=== PATIENT | male | born 1935 | race Caucasian/White ===

== ENCOUNTER 2018-06-08 10:07 | Day surgery (SDC) | payer MEDICARE, OTHER, SELFPAY ==
[2018-06-03 12:55] VITALS: BP 120/66; PULSE 70; RESP 16; TEMP 36.6; O2SAT 94
--- NOTE | 2018-06-07 17:59 | POEE_ITS ---
History of Present Illness Chief Complaint: Progressive decreased vision, right eye Narrative: The patient is an 82-year-old lady with history of homonymous hemianopia who presented with complaints of diminished visual acuity in both eyes. She notes significant difficulty with glare when driving at night. On examination she was noted to have significant bilateral nuclear cortical and posterior subcapsular cataracts in both eyes with visual acuity of 20/70 in each eye. NOTE: The Chief Complaint, HPI, Past Medical History, Past Surgical History, Family History, Social History, Medications, and complete Ophthalmic Exam with detailed Assessment and Plan have already been documented in the patient's outpatient ophthalmic record and are not covered again in detail here. [facility] Medical History Cortical cataract of right eye (Acute) Nuclear sclerotic cataract of right eye (Acute) Posterior subcapsular age-related cataract, right eye (Acute) Social History Smoking/Tobacco Use Status: Former Tobacco Use Meds Home Medications Medication Instructions Recorded Confirmed Type albuterol sulfate [Proventil HFA] 2 puff INHALATION QID PRN 06/03/18 06/03/18 History aspirin 81 mg PO .QOD 06/03/18 06/03/18 History cholecalciferol (vitamin D3) 2,000 unit PO DAILY 06/03/18 06/03/18 History [Vitamin D3] clotrimazole-betamethasone 1 applic TOPICAL BID 06/03/18 06/03/18 History [Lotrisone] finasteride 5 mg PO DAILY 06/03/18 06/03/18 History ipratropium-albuterol 3 ml INHALATION QID PRN 06/03/18 06/03/18 History mometasone [Asmanex Twisthaler] 1 inh INHALATION BID 06/03/18 06/03/18 History nvuwmlqs-ure-DQ-lycopen-lutein 1 tab PO DAILY 06/03/18 06/03/18 History [Centrum Silver Men] omeprazole 20 mg PO DAILY 06/03/18 06/03/18 History phenytoin sodium extended 30 mg PO HS 06/03/18 06/03/18 History phenytoin sodium extended 300 mg PO HS 06/03/18 06/03/18 History roflumilast 500 mcg PO DAILY 06/03/18 06/03/18 History simvastatin 40 mg PO QPM 06/03/18 06/03/18 History tiotropium-olodaterol [Stiolto 2 puff INHALATION DAILY 06/03/18 06/03/18 History Respimat] trazodone 1 - 2 tab PO HS PRN 06/03/18 06/03/18 History triamcinolone acetonide 1 applic TOPICAL TID PRN 06/03/18 06/03/18 History Allergies Allergy/AdvReac Type Severity Reaction Status Date / Time pneumococcal vaccine Allergy Verified 06/03/18 13:07 [From Pneumovax 23] Exam OCULAR EXAM:: Most recent ocular examination revealed best corrected visual acuity of 20/40 right eye, 20/20 left eye. Pupils equal, round, and reactive without afferent pupillary defect. Intraocular pressure is 10 in each eye. Extraocular motility is normal. Slit-lamp examination reveals pupils dilated to 5.5 mm OU. There is a 3+ nuclear, 3+ cortical, and 2+ posterior subcapsular cataract in both eyes with poor red reflex. Funduscopic examination shows disc cupping of 0.45 OD, 0.6 OS with normal vessels. The optic nerves have good perfusion and normal color. The retinal vasculature is normal without signific ant tortuosity or abnormality. The maculas are normal in appearance with normal contour and foveal reflex appropriate for age. The peripheral retina and vitreous are normal. BRIGHTNESS ACUITY TESTING (BAT):: acuity testing of the right eye off is 20/40. Low is 20/70. Medium is 20/80. high is 20/150. Assessment and Plan (1) Posterior subcapsular age-related cataract, right eye: Current visit: No Status: Acute Assessment: Visually significant cataract, right eye. Plan: Cataract extraction with intraocular lens implantation, right eye (2) Nuclear sclerotic cataract of right eye: Current visit: No Status: Acute Assessment: Visually significant cataract, right eye. Plan: Cataract extraction with intraocular lens implantation, right eye (3) Cortical cataract of right eye: Current visit: No Status: Acute Assessment: Visually significant cataract, right eye. Plan: Cataract extraction with intraocular lens implantation, right eye Note: NOTE:: The details of the planned surgery, including the risks, indications,limitations,expectations,outcome and possible complications were explained to the patient. The patient understands the complications including, but not limited to: infection, hemorrhage, posterior dislocation of the lens or nuclear fragments which may require the intervention of a vitreoretinal surgeon, possible loss of the eye, or from anesthetic complications. The patient has been made aware of the option of not having surgery, that vision following surgery may not be equal to that prior to surgery, and that the planned surgery may not achieve the intended results. Following this discussion, which the patient appeared to understand, the patient wishes to proceed with cataract surgery with lens implantation of the affected eye to improve and maximize vision.
--- NOTE | 2018-06-07 18:10 | W.PIPPEYE ---
History of Present Illness Chief Complaint: Progressive decreased vision, right eye Narrative: The patient is an 85-year old male who presented with complaints of progressive decreased vision in both eyes at both distance and near. He notes significant difficulty driving at night due to glare. On examination he was noted to have nuclear and posterior subcapsular cataract of the right eye with best corrected vision of 20/100. The option of cataract surgery was offered to the patient and he wished to proceed. NOTE: The Chief Complaint, HPI, Past Medical History, Past Surgical History, Family History, Social History, Medications, and complete Ophthalmic Exam with detailed Assessment and Plan have already been documented in the patient's outpatient ophthalmic record and are not covered again in detail here. [facility] History Cortical cataract of right eye (Acute) Nuclear sclerotic cataract of right eye (Acute) Posterior subcapsular age-related cataract, right eye (Acute) Social History Smoking/Tobacco Use Status: Former Tobacco Use Meds Home Medications Medication Instructions Recorded Confirmed Type albuterol sulfate [Proventil HFA] 2 puff INHALATION QID PRN 06/03/18 06/03/18 History aspirin 81 mg PO .QOD 06/03/18 06/03/18 History cholecalciferol (vitamin D3) 2,000 unit PO DAILY 06/03/18 06/03/18 History [Vitamin D3] clotrimazole-betamethasone 1 applic TOPICAL BID 06/03/18 06/03/18 History [Lotrisone] finasteride 5 mg PO DAILY 06/03/18 06/03/18 History ipratropium-albuterol 3 ml INHALATION QID PRN 06/03/18 06/03/18 History mometasone [Asmanex Twisthaler] 1 inh INHALATION BID 06/03/18 06/03/18 History vyyyzlsa-rpk-XT-lycopen-lutein 1 tab PO DAILY 06/03/18 06/03/18 History [Centrum Silver Men] omeprazole 20 mg PO DAILY 06/03/18 06/03/18 History phenytoin sodium extended 30 mg PO HS 06/03/18 06/03/18 History phenytoin sodium extended 300 mg PO HS 06/03/18 06/03/18 History roflumilast 500 mcg PO DAILY 06/03/18 06/03/18 History simvastatin 40 mg PO QPM 06/03/18 06/03/18 History tiotropium-olodaterol [Stiolto 2 puff INHALATION DAILY 06/03/18 06/03/18 History Respimat] trazodone 1 - 2 tab PO HS PRN 06/03/18 06/03/18 History triamcinolone acetonide 1 applic TOPICAL TID PRN 06/03/18 06/03/18 History Allergies Allergy/AdvReac Type Severity Reaction Status Date / Time pneumococcal vaccine Allergy Verified 06/03/18 13:07 [From Pneumovax 23] Exam OCULAR EXAM:: Most recent ocular examination shows best corrected vision of 20/100 OD, 20/40 OS. Intraocular pressure is 14 OD, 17 OS. Extraocular motility is normal. Pupils equal, round, and reactive without afferent pupillary defect. 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 2+ nuclear cataract is present OU. In addition, a 2+ posterior subcapsular cataract is present OD. Funduscopic examination shows disc cupping of 0.3 OU with good color. The optic nerves have good perfusion and normal color. The retinal vasculature is normal without significant tortuosity or abnormality. The maculas are normal in appearance with normal contour and foveal reflex appropriate for age. The peripheral retina and vitreous are normal. BRIGHTNESS ACUITY TESTING (BAT):: Brightness acuity testing of the right eye cough is 20/100. Low, medium, and high R 20/200. Note: NOTE:: The details of the planned surgery, including the risks, indications,limitations,expectations,outcome and possible complications were explained to the patient. The patient understands the complications including, but not limited to: infection, hemorrhage, posterior dislocation of the lens or nuclear fragments which may require the intervention of a vitreoretinal surgeon, possible loss of the eye, or from anesthetic complications. The patient has been made aware of the option of not having surgery, that vision following surgery may not be equal to that prior to surgery, and that the planned surgery may not achieve the intended results. Following this discussion, which the patient appeared to understand, the patient wishes to proceed with cataract surgery with lens implantation of the affected eye to improve and maximize vision.
[2018-06-08 10:40] VITALS: BP 131/67; PULSE 74; RESP 16; TEMP 36.6; O2SAT 94
[2018-06-08] MEDS: Tetracaine 0.5% 4 ML BTL OD ×2 (11:04→12:05)
[2018-06-08] MEDS: Tropicam./Phenyleph. (1/2.5%) 5 ML BTL OD ×3 (11:05→11:33)
[2018-06-08] MEDS: Lidocaine 2% Jelly 6 ML SYR (12:03)
[2018-06-08] MEDS: Triamcinolone 40 MG/ML VIAL (12:05)
[2018-06-08] MEDS: Povidone-Iodine Ophth 30 ML BTL (12:05)
[2018-06-08] MEDS: Trypan Blue 0.06% 0.5 ML SYR (12:05)
[2018-06-08] MEDS: Balanced Salt Soln.-PLUS 500 ML BAG (12:05)
[2018-06-08] MEDS: Lidocaine 1% Pres-Free 5 ML VIAL (12:05)
--- NOTE | 2018-06-08 12:39 | W.PM.DSUDISC ---
Discharge Plan Discharge Details Attending Provider: Jorge Bennett Primary Care Provider: Fabienne Sexton Home Meds and New Rx's Prescriptions: No Action ipratropium-albuterol 0.5 mg-3 mg(2.5 mg base)/3 mL Solution For Nebulization 3 ml INHALATION QID PRNRF: 0 trazodone 50 mg Tablet 1 - 2 tab PO HS PRNRF: 0 phenytoin sodium extended 100 mg Capsule 300 mg PO HS RF: 0 triamcinolone acetonide 0.1 % Cream 1 applic TOPICAL TID PRNRF: 0 simvastatin 40 mg Tablet 40 mg PO QPM RF: 0 clotrimazole-betamethasone [Lotrisone] 1-0.05 % Cream 1 applic TOPICAL BID RF: 0 omeprazole 20 mg Capsule,Delayed Release(Dr/Ec) 20 mg PO DAILY RF: 0 aspirin 81 mg Tablet,Chewable 81 mg PO .QOD RF: 0 Proventil HFA 90 mcg/actuation Hfa Aerosol Inhaler 2 puff INHALATION QID PRNRF: 0 phenytoin sodium extended 30 mg Capsule 30 mg PO HS RF: 0 finasteride 5 mg Tablet 5 mg PO DAILY RF: 0 Asmanex Twisthaler 220 mcg (120 doses) Aerosol Powdr Breath Activated 1 inh INHALATION BID RF: 0 cholecalciferol (vitamin D3) [Vitamin D3] 2,000 unit Capsule 2,000 unit PO DAILY RF: 0 roflumilast 500 mcg Tablet 500 mcg PO DAILY RF: 0 Centrum Silver Men 300-600-300 mcg Tablet 1 tab PO DAILY RF: 0 Stiolto Respimat 2.5-2.5 mcg/actuation Mist 2 puff INHALATION DAILY RF: 0 Discharge Instructions Stand Alone Forms: Post-op Topical Cataract, Press Ganey (DSU) DS: Diagnosis Discharge Diagnosis (1) Status post cataract extraction and insertion of intraocular lens of right eye: Status: Chronic
--- NOTE | 2018-06-08 12:41 | W.PM.OP ---
Date of service: 06/08/18 Time of Service: 12:41 Operative Note PRE-OP DIAGNOSIS: Cataract, right eye, with poor red reflex PROCEDURE: Cataract extraction using phacoemulsification with intraocular lens implantation, right eye, using capsular staining with Vision Blue SURGEON: Jorge Bennett ANESTHESIA: MAC (with local sub-tenon's anesthetic injection) PATHOLOGY: none sent COMPLICATIONS: None Patient was transported to: same day Patient's condition: stable Implants: Josue and Josue / [employer] Tecnis [id number] Indications: Progressive visual loss due to cataract, right eye Procedure Description: CATARACT SURGERY OPERATIVE REPORT PREOPERATIVE DIAGNOSIS: 1. Nuclear/cortical/posterior subcapsular cataract, right eye 2. Poor red reflex secondary to #1 POSTOPERATIVE DIAGNOSIS: Same OPERATION: 1. Cataract extraction using phacoemulsification with posterior chamber intraocular lens implant, right eye. 2. Capsular staining with Vision Blue IOL: IOL [employer] Reviewer/Model: Josue & Josue / GALA Tecnis [id number] IOL Power: + 19.0 diopters IOL Serial Number: [id number] Optic Diameter: 6.0mm Haptic/Overall Diameter: 13.0mm PHACO INFO: Rajeev Viditurion Vision System with OZil and Active Fluidics Cumulative Dispersed Energy (CDE): 10.58 seconds SURGEON: Jorge Bennett MD, JACQUELINE ANESTHESIA: Monitored Anesthesia Care (MAC), with local sub-tenon's anesthetic infiltration COMPLICATIONS: None SPECIMENS: None INDICATIONS FOR PROCEDURE: The patient is a 82-year old male with history of progressive decreased vision in his right eye. He is noted to have a significant nuclear cortical and posterior subcapsular cataract of the right eye with visual acuity of 20/70. The option of cataract surgery was offered to the patient and he wished to proceed. PROCEDURE: The correct surgical eye was identified and marked as the right eye and the pupil was dilated in the preoperative area using mydriatics, cycloplegics, and NSAIDS (except in aspirin allergic patients). The dilated pupil size was 7.0 mm. Oral sedation was administered in the form of an Imprimis MKO Melt (midazolam 3mg/ketamine 25mg/ondansetron 2mg). The patient was brought to the operating room where cardiopulmonary monitoring was instituted and surgical time-out was performed, confirming the correct operative eye and IOL power. Topical anesthesia was administered and ophthalmic povidone-iodine 5% was instilled into the conjunctival fornices. Lidocaine gel was applied to the cornea and the aleyda-ocular area was prepped with Betadine 10% solution and draped in the usual sterile fashion for intraocular surgery, including an aperture drape. A Tegaderm transparent film dressing was cut in half and used to cover the lashes and lid margins. Care was taken to sequester the lashes and lid margins under the Tegaderm dressing. A lid speculum was placed between the lids of the operative eye and the Kash-Ervin operating microscope was maneuvered into position. Sherie scissors were then used to make a conjunctival buttonhole approximately 6mm posterior to the limbus in the inferonasal quadrant. Blunt dissection was carried out to expose bare sclera, and a blunt-tipped sub-tenon?s anesthesia cannula was introduced and passed posteriorly along the globe where non-preserved plain lidocaine was injected into posterior sub-Tenon?s space. A sideport knife was used to make a paracentesis port at the 7:00 position. Air was injected into the anterior chamber, followed by Vision Blue, which was painted over the anterior capsule and then irrigated out with BSS. The anterior chamber was filled with Healon GV. A 2.4mm keratome knife was used to create a half-thickness groove at the limbus and then to construct a three-plane near-clear corneal tunnel extending 2.0mm into clear cornea at the 10:00 position. A flap was raised on the anterior capsule and capsulorhexis forceps were used to complete a continuous curvilinear capsulorhexis of 5.0mm. Balanced salt solution was then used to perform cortical cleaving hydrodissection and nuclear hydrodelineation until the lens could be freely rotated within the capsular bag. The lens nucleus was then disassembled and removed within the capsular bag and iris plane using phacoemulsification. Residual cortical material was removed using the 45-degree angled silicone I/A tip with 0.3mm port. The posterior capsule was carefully polished to remove as much residual lens epithelial cells as safely possible. The capsular bag was then inflated and the anterior chamber deepened with viscoelastic. The lens implant described above was inserted into the capsular bag using the GALA Anderson Injector. A Kuglen hook was used to dial the IOL into position. Residual viscoelastic was then removed first from posterior to the IOL, then from the anterior chamber using the I/A handpiece. The lens implant was noted to center nicely within the capsular bag. The incisions were stromally hydrated, and the anterior chamber was reformed using BSS. Then 0.4cc of moxifloxacin 1.5mg/ml were injected into the capsular bag and anterior chamber. The incisions were checked with a Weck spear and found to be secure. Next, a 1 cc mixture containing 20 mg of triamcinolone and 2.5 mg of moxifloxacin were injected into the posterior sub-tenon's space using the sub-tenon's anesthesia cannula. Several drops of ophthalmic povidone-iodine 5% were then applied to the eye followed by two drops of Imprimis combination moxifloxacin/dexamethasone solution. The drapes were removed and a clear plastic protective eye shield was placed over the eye. The patient was then returned to Same Day Surgery in stable condition.
--- NOTE | 2018-06-08 12:45 | ROE_ITS ---
Date of service: 06/08/18 Time of Service: 12:41 Operative Note PRE-OP DIAGNOSIS: Cataract, right eye, with poor red reflex PROCEDURE: Cataract extraction using phacoemulsification with intraocular lens implantation, right eye, using capsular staining with Vision Blue SURGEON: Jorge Bennett ANESTHESIA: MAC (with local sub-tenon's anesthetic injection) PATHOLOGY: none sent COMPLICATIONS: None Patient was transported to: same day Patient's condition: stable Implants: Jos[employer] and Josue / [employer] Tecnis [id number] Indications: Progressive visual loss due to cataract, right eye Procedure Description: CATARACT SURGERY OPERATIVE REPORT PREOPERATIVE DIAGNOSIS: 1. Nuclear/cortical/posterior subcapsular cataract, right eye 2. Poor red reflex secondary to #1 POSTOPERATIVE DIAGNOSIS: Same OPERATION: 1. Cataract extraction using phacoemulsification with posterior chamber intraocular lens implant, right eye. 2. Capsular staining with Vision Blue IOL: IOL [employer] Member/Model: Josue & Josue / GALA Tecnis [id number] IOL Power: + 19.0 diopters IOL Serial Number: [id number] Optic Diameter: 6.0mm Haptic/Overall Diameter: 13.0mm PHACO INFO: Rajeev PWAurion Vision System with OZil and Active Fluidics Cumulative Dispersed Energy (CDE): 10.58 seconds SURGEON: Jorge Bennett MD, JACQUELINE ANESTHESIA: Monitored Anesthesia Care (MAC), with local sub-tenon's anesthetic infiltration COMPLICATIONS: None SPECIMENS: None INDICATIONS FOR PROCEDURE: The patient is a 82-year old male with history of progressive decreased vision in his right eye. He is noted to have a significant nuclear cortical and posterior subcapsular cataract of the right eye with visual acuity of 20/70. The option of cataract surgery was offered to the patient and he wished to proceed. PROCEDURE: The correct surgical eye was identified and marked as the right eye and the pupil was dilated in the preoperative area using mydriatics, cycloplegics, and NSAIDS (except in aspirin allergic patients). The dilated pupil size was 7.0 mm. Oral sedation was administered in the form of an Imprimis MKO Melt (midazolam 3mg/ketamine 25mg/ondansetron 2mg). The patient was brought to the operating room where cardiopulmonary monitoring was instituted and surgical time-out was performed, confirming the correct operative eye and IOL power. Topical anesthesia was administered and ophthalmic povidone-iodine 5% was instilled into the conjunctival fornices. Lidocaine gel was applied to the cornea and the aleyda-ocular area was prepped with Betadine 10% solution and draped in the usual sterile fashion for intraocular surgery, including an aperture drape. A Tegaderm transparent film dressing was cut in half and used to cover the lashes and lid margins. Care was taken to sequester the lashes and lid margins under the Tegaderm dressing. A lid speculum was placed between the lids of the operative eye and the Kash-Ervin operating microscope was maneuvered into position. Sherie scissors were then used to make a conjunctival buttonhole approximately 6mm posterior to the limbus in the inferonasal quadrant. Blunt dissection was carried out to expose bare sclera, and a blunt-tipped sub-tenon?s anesthesia cannula was introduced and passed posteriorly along the globe where non- preserved plain lidocaine was injected into posterior sub-Tenon?s space. A sideport knife was used to make a paracentesis port at the 7:00 position. Air was injected into the anterior chamber, followed by Vision Blue, which was painted over the anterior capsule and then irrigated out with BSS. The anterior chamber was filled with Healon GV. A 2.4mm keratome knife was used to create a half-thickness groove at the limbus and then to construct a three-plane near- clear corneal tunnel extending 2.0mm into clear cornea at the 10:00 position. A flap was raised on the anterior capsule and capsulorhexis forceps were used to complete a continuous curvilinear capsulorhexis of 5.0mm. Balanced salt solution was then used to perform cortical cleaving hydrodissection and nuclear hydrodelineation until the lens could be freely rotated within the capsular bag. The lens nucleus was then disassembled and removed within the capsular bag and iris plane using phacoemulsification. Residual cortical material was removed using the 45-degree angled silicone I/A tip with 0.3mm port. The posterior capsule was carefully polished to remove as much residual lens epithelial cells as safely possible. The capsular bag was then inflated and the anterior chamber deepened with viscoelastic. The lens implant described above was inserted into the capsular bag using the GALA Freeland Injector. A Kuglen hook was used to dial the IOL into position. Residual viscoelastic was then removed first from posterior to the IOL, then from the anterior chamber using the I/A handpiece. The lens implant was noted to center nicely within the capsular bag. The incisions were stromally hydrated, and the anterior chamber was reformed using BSS. Then 0.4cc of moxifloxacin 1.5mg/ml were injected into the capsular bag and anterior chamber. The incisions were checked with a Weck spear and found to be secure. Next, a 1 cc mixture containing 20 mg of triamcinolone and 2.5 mg of moxifloxacin were injected into the posterior sub-tenon's space using the sub-tenon's anesthesia cannula. Several drops of ophthalmic povidone-iodine 5% were then applied to the eye followed by two drops of Imprimis combination moxifloxacin/dexamethasone solution. The drapes were removed and a clear plastic protective eye shield was placed over the eye. The patient was then returned to Same Day Surgery in stable condition.
== END 2018-06-08 13:05 | disposition home or self-care (01) ==
LOC: SUR 10:08
PROVIDERS: PCP Internal Medicine; Visit Provider Ophthalmology
PROC: (CPT 66982; principal; 2018-06-08 13:05)
DX: H25.811 Combined forms of age-related cataract, right eye (principal); H35.89 Other specified retinal disorders; J44.9 Chronic obstructive pulmonary disease, unspecified; I10 Essential (primary) hypertension; G47.33 Obstructive sleep apnea (adult) (pediatric); E11.9 Type 2 diabetes mellitus without complications
CPT/HCPCS: 66982; V2632

== ENCOUNTER 2018-06-19 09:36 | Day surgery (SDC) | payer MEDICARE, OTHER, SELFPAY ==
--- NOTE | 2018-06-18 12:17 | W.PIPPEYE ---
History of Present Illness Chief Complaint: Progressive decreased vision, left eye Narrative: The patient is an 82-year old male with history of progressive decreased vision in both eyes at both distance and near. 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 He originally presented with complaints of diminished visual acuity and was noted to have significant bilateral nuclear cortical and posterior subcapsular cataracts with visual acuity of 20/70 in each eye. He underwent cataract surgery in the right eye on 06/08/2018 and has regained uncorrected vision of 20/30 in the right eye. He now presents for cataract surgery in the left eye. NOTE: The Chief Complaint, HPI, Past Medical History, Past Surgical History, Family History, Social History, Medications, and complete Ophthalmic Exam with detailed Assessment and Plan have already been documented in the patient's outpatient ophthalmic record and are not covered again in detail here. [facility] Medical History Cortical cataract of left eye (Acute) Nuclear sclerotic cataract of left eye (Acute) Posterior subcapsular age-related cataract of left eye (Acute) Cortical cataract of right eye (Resolved) Nuclear sclerotic cataract of right eye (Resolved) Posterior subcapsular age-related cataract, right eye (Resolved) Surgical History Status post cataract extraction and insertion of intraocular lens of right eye (Chronic 06/08/18) Social History Smoking/Tobacco Use Status: Former Tobacco Use Meds Home Medications Medication Instructions Recorded Confirmed Type albuterol sulfate [Proventil HFA] 2 puff INHALATION QID PRN 06/03/18 06/08/18 History aspirin 81 mg PO .QOD 06/03/18 06/03/18 History cholecalciferol (vitamin D3) 2,000 unit PO DAILY 06/03/18 06/08/18 History [Vitamin D3] clotrimazole-betamethasone 1 applic TOPICAL BID 06/03/18 06/08/18 History [Lotrisone] finasteride 5 mg PO DAILY 06/03/18 06/08/18 History ipratropium-albuterol 3 ml INHALATION QID PRN 06/03/18 06/08/18 History mometasone [Asmanex Twisthaler] 1 inh INHALATION BID 06/03/18 06/08/18 History xcjbccnc-mnb-GR-lycopen-lutein 1 tab PO DAILY 06/03/18 06/08/18 History [Centrum Silver Men] omeprazole 20 mg PO DAILY 06/03/18 06/08/18 History phenytoin sodium extended 30 mg PO HS 06/03/18 06/08/18 History phenytoin sodium extended 300 mg PO HS 06/03/18 06/08/18 History roflumilast 500 mcg PO DAILY 06/03/18 06/08/18 History simvastatin 40 mg PO QPM 06/03/18 06/08/18 History tiotropium-olodaterol [Stiolto 2 puff INHALATION DAILY 06/03/18 06/08/18 History Respimat] trazodone 1 - 2 tab PO HS PRN 06/03/18 06/08/18 History triamcinolone acetonide 1 applic TOPICAL TID PRN 06/03/18 06/08/18 History Allergies Allergy/AdvReac Type Severity Reaction Status Date / Time pneumococcal vaccine Allergy Verified 06/03/18 13:07 [From Pneumovax 23] Exam OCULAR EXAM:: Most recent ocular examination is significant for uncorrected visual acuity of 20/30 in the right eye. Visual acuity measures 20/70 in the left eye. Pupils equal, round, and reactive without afferent pupillary defect. Extraocular motility is normal. Slit-lamp examination is significant for pupils dilating to 5.5 mm OU. Well-positioned PCIOL OD with clear posterior capsule. 3+ nuclear/cortical cataract with 2+ posterior subcapsular cataract in the left eye with poor red reflex. Dilated funduscopic examination shows disc cupping of 0.45 OD 0.6 OS with normal vessels, macula, peripheral retina and vitreous. BRIGHTNESS ACUITY TESTING (BAT):: Brightness acuity testing of the left eye off is 20/70. Low 20/70. Medium 20/60. High 20/60. Assessment and Plan (1) Posterior subcapsular age-related cataract of left eye: Current visit: No Status: Acute Assessment: Visually significant cataract, left eye. Plan: Cataract extraction with intraocular lens implantation, left eye (2) Nuclear sclerotic cataract of left eye: Current visit: No Status: Acute Assessment: Visually significant cataract, left eye. Plan: Cataract extraction with intraocular lens implantation, left eye (3) Cortical cataract of left eye: Current visit: No Status: Acute Assessment: Visually significant cataract, left eye. Plan: Cataract extraction with intraocular lens implantation, left eye Note: NOTE:: The details of the planned surgery, including the risks, indications,limitations,expectations,outcome and possible complications were explained to the patient. The patient understands the complications including, but not limited to: infection, hemorrhage, posterior dislocation of the lens or nuclear fragments which may require the intervention of a vitreoretinal surgeon, possible loss of the eye, or from anesthetic complications. The patient has been made aware of the option of not having surgery, that vision following surgery may not be equal to that prior to surgery, and that the planned surgery may not achieve the intended results. Following this discussion, which the patient appeared to understand, the patient wishes to proceed with cataract surgery with lens implantation of the affected eye to improve and maximize vision.
[2018-06-19 10:12] VITALS: BP 135/63; PULSE 65; RESP 20; TEMP 35.9; O2SAT 96
[2018-06-19] MEDS: Tetracaine 0.5% 4 ML BTL OS ×3 (10:31→10:38)
[2018-06-19] MEDS: Tropicam./Phenyleph. (1/2.5%) 5 ML BTL OS ×3 (10:31→10:38)
[2018-06-19] MEDS: Balanced Salt Soln.-PLUS 500 ML BAG (11:47)
[2018-06-19] MEDS: Lidocaine 2% Jelly 6 ML SYR (11:47)
[2018-06-19] MEDS: Lidocaine 1% Pres-Free 5 ML VIAL (11:47)
[2018-06-19] MEDS: Triamcinolone 40 MG/ML VIAL (11:47)
[2018-06-19] MEDS: Trypan Blue 0.06% 0.5 ML SYR (12:01)
--- NOTE | 2018-06-19 12:27 | W.PM.DSUDISC ---
Discharge Plan Discharge Details Reason For Visit: CATARACT OS Attending Provider: Jorge Bennett Primary Care Provider: Fabienne Sexton Home Meds and New Rx's Prescriptions: No Action ipratropium-albuterol 0.5 mg-3 mg(2.5 mg base)/3 mL Solution For Nebulization 3 ml INHALATION QID PRNRF: 0 phenytoin sodium extended 100 mg Capsule 300 mg PO HS RF: 0 triamcinolone acetonide 0.1 % Cream 1 applic TOPICAL TID PRNRF: 0 simvastatin 40 mg Tablet 40 mg PO QPM RF: 0 clotrimazole-betamethasone [Lotrisone] 1-0.05 % Cream 1 applic TOPICAL BID RF: 0 omeprazole 20 mg Capsule,Delayed Release(Dr/Ec) 20 mg PO DAILY RF: 0 aspirin 81 mg Tablet,Chewable 81 mg PO .QOD RF: 0 Proventil HFA 90 mcg/actuation Hfa Aerosol Inhaler 2 puff INHALATION QID PRNRF: 0 phenytoin sodium extended 30 mg Capsule 30 mg PO HS RF: 0 finasteride 5 mg Tablet 5 mg PO DAILY RF: 0 Asmanex Twisthaler 220 mcg (120 doses) Aerosol Powdr Breath Activated 1 inh INHALATION BID RF: 0 cholecalciferol (vitamin D3) [Vitamin D3] 2,000 unit Capsule 2,000 unit PO DAILY RF: 0 roflumilast 500 mcg Tablet 500 mcg PO DAILY RF: 0 Centrum Silver Men 300-600-300 mcg Tablet 1 tab PO DAILY RF: 0 Stiolto Respimat 2.5-2.5 mcg/actuation Mist 2 puff INHALATION DAILY RF: 0 Discharge Instructions Stand Alone Forms: Post-op Topical Cataract, Press Ganey (DSU) DS: Diagnosis Discharge Diagnosis (1) Status post cataract extraction and insertion of intraocular lens of left eye: Status: Chronic
--- NOTE | 2018-06-19 12:28 | W.PM.OP ---
Date of service: 06/19/18 Time of Service: Operative Note DATE OF PROCEDURE: 06/19/18 PRE-OP DIAGNOSIS: Cataract, left eye, with poor red reflex POST-OP DIAGNOSIS: same PROCEDURE: Cataract extraction using phacoemulsification with intraocular lens implant, left eye, using capsular staining with Vision Blue SURGEON: Jorge Bennett ANESTHESIA: MAC (with local sub-tenon's anesthetic injection) COMPLICATIONS: None Patient was transported to: same day Patient's condition: stable Implants: [employer] Josue / [employer] Tecnis [id number] Indications: Progressive decreased vision due to cataract, left eye, with poor red reflex Procedure Description: CATARACT SURGERY OPERATIVE REPORT PREOPERATIVE DIAGNOSIS: 1. Nuclear/cortical/posterior subcapsular cataract, left eye 2. Poor red reflex secondary to #1 POSTOPERATIVE DIAGNOSIS: Same OPERATION: 1. Cataract extraction using phacoemulsification with posterior chamber intraocular lens implant, left eye. 2. Capsular staining with Vision Blue IOL: IOL Senior Benefits Specialist/Model: Josue & Josue / GALA Tecnis [id number] IOL Power: + 20.0 diopters IOL Serial Number: [id number] Optic Diameter: 6.0 mm Haptic/Overall Diameter: 13.0 mm PHACO INFO: Rajeev Centurion Vision System with OZil and Active Fluidics Cumulative Dispersed Energy (CDE): 12.4 and seconds SURGEON: Jorge Bennett MD, JACQUELINE ANESTHESIA: Monitored [facility] ([facility]), with local sub-tenon's anesthetic infiltration COMPLICATIONS: None SPECIMENS: None INDICATIONS FOR PROCEDURE: The patient is an 82-year old male with history of progressive decreased vision in both eyes secondary to the development of nuclear cortical and posterior subcapsular cataract. 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 He has already undergone cataract surgery in his right eye and is doing well postoperatively. He now presents for cataract surgery in the left eye PROCEDURE: The correct surgical eye was identified and marked as the left eye and the pupil was dilated in the preoperative area using mydriatics and cycloplegics. The dilated pupil size was 6.5 mm. Oral sedation was administered in the form of an Imprimis MKO Melt (midazolam 3mg/ketamine 25mg/ondansetron 2mg). The patient was brought to the operating room where cardiopulmonary monitoring was instituted and surgical time-out was performed, confirming the correct operative eye and IOL power. Topical anesthesia was administered and ophthalmic povidone-iodine 5% was instilled into the conjunctival fornices. Lidocaine gel was applied to the cornea and the aleyda-ocular area was prepped with Betadine 10% solution and draped in the usual sterile fashion for intraocular surgery, including an aperture drape. A Tegaderm transparent film dressing was cut in half and used to cover the lashes and lid margins. Care was taken to sequester the lashes and lid margins under the Tegaderm dressing. A lid speculum was placed between the lids of the operative eye and the Kash-Ervin operating microscope was maneuvered into position. Sherie scissors were then used to make a conjunctival buttonhole approximately 6mm posterior to the limbus in the inferonasal quadrant. Blunt dissection was carried out to expose bare sclera, and a blunt-tipped sub-tenon?s anesthesia cannula was introduced and passed posteriorly along the globe where non-preserved plain lidocaine was injected into posterior sub-Tenon?s space. A sideport knife was used to make a paracentesis port at the 12:00 position. Air was injected into the anterior chamber, followed by Vision Blue, which was painted over the anterior capsule and then irrigated out using BSS. The anterior chamber was filled with Healon GV. A 2.4mm keratome knife was used to create a half-thickness groove at the limbus and then to construct a three-plane near-clear corneal tunnel extending 2.0mm into clear cornea at the 3:00 position. A flap was raised on the anterior capsule and capsulorhexis forceps were used to complete a continuous curvilinear capsulorhexis of 5.0 mm. Balanced salt solution was then used to perform cortical cleaving hydrodissection and nuclear hydrodelineation until the lens could be freely rotated within the capsular bag. The lens nucleus was then disassembled and removed within the capsular bag and iris plane using phacoemulsification. Residual cortical material was removed using the 45-degree angled silicone I/A tip with 0.3mm port. The posterior capsule was carefully polished to remove as much residual lens epithelial cells as safely possible. The capsular bag was then inflated and the anterior chamber deepened with viscoelastic. The lens implant described above was inserted into the capsular bag using the GALA [place] Injector. A Kuglen hook was used to dial the IOL into position. Residual viscoelastic was then removed first from posterior to the IOL, then from the anterior chamber using the I/A handpiece. The lens implant was noted to center nicely within the capsular bag. The incisions were stromally hydrated, and the anterior chamber was reformed using BSS. Then 0.4cc of moxifloxacin 1.5mg/ml were injected into the capsular bag and anterior chamber. The incisions were checked with a Weck spear and found to be secure. Several drops of ophthalmic povidone-iodine 5% were then applied to the eye followed by two drops of Imprimis combination moxifloxacin/dexamethasone solution. The drapes were removed and a clear plastic protective eye shield was placed over the eye. The patient was then returned to Same Day Surgery in stable condition.
--- NOTE | 2018-06-19 12:31 | ROE_ITS ---
Date of service: 06/19/18 Time of Service: Operative Note DATE OF PROCEDURE: 06/19/18 PRE-OP DIAGNOSIS: Cataract, left eye, with poor red reflex POST-OP DIAGNOSIS: same PROCEDURE: Cataract extraction using phacoemulsification with intraocular lens implant, left eye, using capsular staining with Vision Blue SURGEON: Jorge Bennett ANESTHESIA: MAC (with local sub-tenon's anesthetic injection) COMPLICATIONS: None Patient was transported to: same day Patient's condition: stable Implants: [employer] and Josue / [employer] Tecnis [id number] Indications: Progressive decreased vision due to cataract, left eye, with poor red reflex Procedure Description: CATARACT SURGERY OPERATIVE REPORT PREOPERATIVE DIAGNOSIS: 1. Nuclear/cortical/posterior subcapsular cataract, left eye 2. Poor red reflex secondary to #1 POSTOPERATIVE DIAGNOSIS: Same OPERATION: 1. Cataract extraction using phacoemulsification with posterior chamber intraocular lens implant, left eye. 2. Capsular staining with Vision Blue IOL: IOL Miller Apprentice/Model: Josue & Josue / GALA Tecnis [id number] IOL Power: + 20.0 diopters IOL Serial Number: [id number] Optic Diameter: 6.0 mm Haptic/Overall Diameter: 13.0 mm PHACO INFO: Rajeev Centurion Vision System with OZil and Active Fluidics Cumulative Dispersed Energy (CDE): 12.4 and seconds SURGEON: Jorge Bennett MD, JACQUELINE ANESTHESIA: Monitored [facility] (MAC), with local sub-tenon's anesthetic infiltration COMPLICATIONS: None SPECIMENS: None INDICATIONS FOR PROCEDURE: The patient is an 82-year old male with history of progressive decreased vision in both eyes secondary to the development of nuclear cortical and posterior subcapsular cataract. 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 He has already undergone cataract surgery in his right eye and is doing well postoperatively. He now presents for cataract surgery in the left eye PROCEDURE: The correct surgical eye was identified and marked as the left eye and the pupil was dilated in the preoperative area using mydriatics and cycloplegics. The dilated pupil size was 6.5 mm. Oral sedation was administered in the form of an Imprimis MKO Melt (midazolam 3mg/ketamine 25mg/ondansetron 2mg). The patient was brought to the operating room where cardiopulmonary monitoring was instituted and surgical time-out was performed, confirming the correct operative eye and IOL power. Topical anesthesia was administered and ophthalmic povidone-iodine 5% was instilled into the conjunctival fornices. Lidocaine gel was applied to the cornea and the aleyda-ocular area was prepped with Betadine 10% solution and draped in the usual sterile fashion for intraocular surgery, including an aperture drape. A Tegaderm transparent film dressing was cut in half and used to cover the lashes and lid margins. Care was taken to sequester the lashes and lid margins under the Tegaderm dressing. A lid speculum was placed between the lids of the operative eye and the Kash-Ervin operating microscope was maneuvered into position. Sherie scissors were then used to make a conjunctival buttonhole approximately 6mm posterior to the limbus in the inferonasal quadrant. Blunt dissection was carried out to expose bare sclera, and a blunt-tipped sub-tenon?s anesthesia cannula was introduced and passed posteriorly along the globe where non- preserved plain lidocaine was injected into posterior sub-Tenon?s space. A sideport knife was used to make a paracentesis port at the 12:00 position. Air was injected into the anterior chamber, followed by Vision Blue, which was painted over the anterior capsule and then irrigated out using BSS. The a nterior chamber was filled with Healon GV. A 2.4mm keratome knife was used to create a half-thickness groove at the limbus and then to construct a three-plane near-clear corneal tunnel extending 2.0mm into clear cornea at the 3:00 position. A flap was raised on the anterior capsule and capsulorhexis forceps were used to complete a continuous curvilinear capsulorhexis of 5.0 mm. Balanced salt solution was then used to perform cortical cleaving hydrodissection and nuclear hydrodelineation until the lens could be freely rotated within the capsular bag. The lens nucleus was then disassembled and removed within the capsular bag and iris plane using phacoemulsification. Residual cortical material was removed using the 45-degree angled silicone I/A tip with 0.3mm port. The posterior capsule was carefully polished to remove as much residual lens epithelial cells as safely possible. The capsular bag was then inflated and the anterior chamber deepened with viscoelastic. The lens implant described above was inserted into the capsular bag using the GALA [place] Injector. A Kuglen hook was used to dial the IOL into position. Residual viscoelastic was then removed first from posterior to the IOL, then from the anterior chamber using the I/A handpiece. The lens implant was noted to center nicely within the capsular bag. The incisions were stromally hydrated, and the anterior chamber was reformed using BSS. Then 0.4cc of moxifloxacin 1.5mg/ml were injected into the capsular bag and anterior chamber. The incisions were checked with a Weck spear and found to be secure. Several drops of ophthalmic povidone-iodine 5% were then applied to the eye followed by two drops of Imprimis combination moxifloxacin/dexamethasone solution. The drapes were removed and a clear plastic protective eye shield was placed over the eye. The patient was then returned to Same Day Surgery in stable condition.
[2018-06-19] MEDS: Povidone-Iodine Ophth 30 ML BTL (12:35)
[2018-06-19 13:48] VITALS: BP 122/67; PULSE 75; RESP 18; TEMP 36.2; O2SAT 95
== END 2018-06-19 13:00 | disposition home or self-care (01) ==
LOC: SUR 09:38
PROVIDERS: PCP Internal Medicine; Visit Provider Ophthalmology
PROC: (CPT 66982; principal; 2018-06-19 12:30)
DX: H25.812 Combined forms of age-related cataract, left eye (principal); H35.89 Other specified retinal disorders; Z98.41 Cataract extraction status, right eye; Z96.1 Presence of intraocular lens; J44.9 Chronic obstructive pulmonary disease, unspecified; I10 Essential (primary) hypertension; G47.33 Obstructive sleep apnea (adult) (pediatric); E11.9 Type 2 diabetes mellitus without complications
CPT/HCPCS: 66982; V2632

== ENCOUNTER 2021-07-23 01:15 | Outpatient (RCR) | payer MEDICARE, SELFPAY ==
[2021-07-16 08:48] LABS: Abs Immature Grans 0.04 10^3/uL (0.0-0.06); Absolute Basophil Count 0.04 10^3/uL (0.0-0.2); Absolute Lymphocyte Count 0.66 10^3/uL (1.2-3.4); Absolute Monocyte Count 0.66 10^3/uL (0.1-0.8); Absolute Neutrophil Count 7.85 10^3/uL (1.2-6.7); Basophils % 0.4; Eosinophils % 2.1; HCT 42.1 % (40.0-50.0); HGB 13.1 g/dL (13.5-17.5); Immature Grans % 0.4; MCH 27.8 pg (27.0-33.0); MCHC 31.1 % (32.0-36.0); MCV 89.2 fL (80-95); MPV 8.5 fL (8.0-11.0); Neutrophils % 83.1; Nucleated RBC 0 %; Platelet Count 191 10^3/uL (130-400); RBC 4.72 10^6/uL (4.36-5.78); RDW 13.3 % (11.8-14.1); RDW-SD 43.8 fL; WBC 9.45 10^3/uL (4.4-10.8)
[2021-07-16] MEDS: Normal Saline Flush 10 ML SYR IVP (08:54)
[2021-07-16 09:15] LABS: ALT 24 U/L (16-63); AST 27 U/L (15-37); Alkaline Phosphatase 186 U/L (46-116); Anion Gap 6.4 mmol/L (3-11); BUN 15 mg/dL (7-18); Bilirubin, Total 0.3 mg/dL (0.2-1.0); CO2 30.6 mmol/L (21.0-32.0); CREATININE 0.8 mg/dL (0.70-1.30); Calcium 8.6 mg/dL (8.5-10.1); Chloride 103 mmol/L (98-107); Glucose 125 mg/dL (74-106); Magnesium 1.7 mg/dL (1.8-2.4); Potassium 3.6 mmol/L (3.5-5.1); Sodium 140 mmol/L (136-145); Total Protein 7.4 g/dL (6.4-8.2)
[2021-07-23] MEDS: Normal Saline Flush 10 ML SYR IVP (08:23)
[2021-07-23 08:31] LABS: Abs Immature Grans 0.06 10^3/uL (0.0-0.06); Absolute Basophil Count 0.03 10^3/uL (0.0-0.2); Absolute Eosinophil Count 0.14 10^3/uL (0.0-0.7); Absolute Lymphocyte Count 0.44 10^3/uL (1.2-3.4); Absolute Monocyte Count 0.35 10^3/uL (0.1-0.8); Absolute Neutrophil Count 4.81 10^3/uL (1.2-6.7); Basophils % 0.5; Eosinophils % 2.4; HGB 12.3 g/dL (13.5-17.5); Lymphocytes % 7.5; MCH 27.8 pg (27.0-33.0); MCHC 31.5 % (32.0-36.0); MPV 8.5 fL (8.0-11.0); Neutrophils % 82.6; Nucleated RBC 0 %; Platelet Count 182 10^3/uL (130-400); RBC 4.43 10^6/uL (4.36-5.78); RDW 13.2 % (11.8-14.1); RDW-SD 43.1 fL; WBC 5.83 10^3/uL (4.4-10.8)
[2021-07-23 09:07] LABS: ALT 22 U/L (16-63); AST 23 U/L (15-37); Albumin 3.1 g/dL (3.4-5.0); Alkaline Phosphatase 170 U/L (46-116); Anion Gap 6.8 mmol/L (3-11); BUN 14 mg/dL (7-18); Bilirubin, Total 0.2 mg/dL (0.2-1.0); CO2 31.2 mmol/L (21.0-32.0); CREATININE 0.8 mg/dL (0.70-1.30); Calcium 8.4 mg/dL (8.5-10.1); Chloride 102 mmol/L (98-107); Glucose 144 mg/dL (74-106); Magnesium 1.7 mg/dL (1.8-2.4); Potassium 3.6 mmol/L (3.5-5.1); Sodium 140 mmol/L (136-145); Total Protein 7.2 g/dL (6.4-8.2)
== END 2021-07-23 23:59 | disposition home or self-care (01) ==
LOC: INF 01:15
PROVIDERS: PCP Internal Medicine; Visit Provider Internal Medicine Medical Oncology
DX: C34.32 Malignant neoplasm of lower lobe, left bronchus or lung (principal); Z45.2 Encounter for adjustment and management of vascular access device
CPT/HCPCS: 36591; 80053; 83735; 85025

== ENCOUNTER 2021-08-20 01:22 | Outpatient (RCR) | payer MEDICARE, SELFPAY ==
[2021-07-30 07:36] LABS: Abs Immature Grans 0.04 10^3/uL (0.0-0.06); Absolute Basophil Count 0.02 10^3/uL (0.0-0.2); Absolute Eosinophil Count 0.11 10^3/uL (0.0-0.7); Absolute Lymphocyte Count 0.26 10^3/uL (1.2-3.4); Absolute Neutrophil Count 3.37 10^3/uL (1.2-6.7); Basophils % 0.5; Eosinophils % 2.7; HCT 39.2 % (40.0-50.0); HGB 12.2 g/dL (13.5-17.5); Lymphocytes % 6.3; MCH 27.6 pg (27.0-33.0); MCHC 31.1 % (32.0-36.0); MCV 88.7 fL (80-95); MPV 8.4 fL (8.0-11.0); Monocytes % 7.3; Neutrophils % 82.2; Nucleated RBC 0 %; Platelet Count 140 10^3/uL (130-400); RBC 4.42 10^6/uL (4.36-5.78); RDW 13.6 % (11.8-14.1); RDW-SD 43.6 fL
[2021-07-30] MEDS: Normal Saline Flush 10 ML SYR IVP (07:40)
[2021-07-30 07:51] LABS: ALT 22 U/L (16-63); AST 21 U/L (15-37); Albumin 3.1 g/dL (3.4-5.0); Alkaline Phosphatase 160 U/L (46-116); Anion Gap 5.7 mmol/L (3-11); BUN 15 mg/dL (7-18); Bilirubin, Total 0.2 mg/dL (0.2-1.0); CO2 30.3 mmol/L (21.0-32.0); CREATININE 0.7 mg/dL (0.70-1.30); Calcium 8.4 mg/dL (8.5-10.1); Chloride 106 mmol/L (98-107); Glucose 150 mg/dL (74-106); Magnesium 1.8 mg/dL (1.8-2.4); Potassium 3.7 mmol/L (3.5-5.1); Sodium 142 mmol/L (136-145)
[2021-08-06] MEDS: Normal Saline Flush 10 ML SYR IVP (09:32)
[2021-08-06 09:35] LABS: Abs Immature Grans 0.02 10^3/uL (0.0-0.06); Absolute Basophil Count 0.02 10^3/uL (0.0-0.2); Absolute Eosinophil Count 0.04 10^3/uL (0.0-0.7); Absolute Monocyte Count 0.28 10^3/uL (0.1-0.8); Absolute Neutrophil Count 3.32 10^3/uL (1.2-6.7); Basophils % 0.5; HCT 39.7 % (40.0-50.0); HGB 12.6 g/dL (13.5-17.5); Immature Grans % 0.5; Lymphocytes % 5.2; MCH 28.5 pg (27.0-33.0); MCHC 31.7 % (32.0-36.0); MCV 89.8 fL (80-95); MPV 8.4 fL (8.0-11.0); Monocytes % 7.2; Neutrophils % 85.6; Nucleated RBC 0 %; Platelet Count 100 10^3/uL (130-400); RBC 4.42 10^6/uL (4.36-5.78); RDW 13.9 % (11.8-14.1); RDW-SD 44.4 fL; WBC 3.88 10^3/uL (4.4-10.8)
[2021-08-06 09:49] LABS: ALT 24 U/L (16-63); AST 24 U/L (15-37); Albumin 3.3 g/dL (3.4-5.0); Alkaline Phosphatase 156 U/L (46-116); Anion Gap 4.2 mmol/L (3-11); BUN 14 mg/dL (7-18); Bilirubin, Total 0.2 mg/dL (0.2-1.0); CO2 29.8 mmol/L (21.0-32.0); CREATININE 0.7 mg/dL (0.70-1.30); Calcium 8.5 mg/dL (8.5-10.1); Chloride 105 mmol/L (98-107); Glucose 156 mg/dL (74-106); Magnesium 1.8 mg/dL (1.8-2.4); Potassium 3.8 mmol/L (3.5-5.1); Sodium 139 mmol/L (136-145); Total Protein 7.2 g/dL (6.4-8.2)
[2021-08-06 14:20] LABS: Bilirubin Negative (Negative); Blood Trace-intact (Negative); Clarity Clear (Clear); Glucose Negative (Negative); Ketones Negative (Negative); Leukocyte Esterase Negative (Negative); Nitrite Negative (Negative); Specific Gravity >= 1.030 (1.005-1.025); Urobilinogen 0.2 EU/dL (Up TO 0.2)
[2021-08-06 14:34] LABS: Bacteria Negative HPF (Negative); C & S Indicated? C&S Done As Ordered; Casts Negative LPF (Negative); Crystals Negative HPF (Negative); Epithelial Cells Rare HPF (Negative); Mucus Negative (Negative); RBC 0-2 HPF (0-2); WBC Negative HPF (0-5)
[2021-08-13] MEDS: Normal Saline Flush 10 ML SYR IVP (07:26)
[2021-08-13 07:29] LABS: Abs Immature Grans 0.05 10^3/uL (0.0-0.06); Absolute Basophil Count 0.03 10^3/uL (0.0-0.2); Absolute Eosinophil Count 0.04 10^3/uL (0.0-0.7); Absolute Lymphocyte Count 0.23 10^3/uL (1.2-3.4); Absolute Monocyte Count 0.37 10^3/uL (0.1-0.8); Absolute Neutrophil Count 3.64 10^3/uL (1.2-6.7); Basophils % 0.7; Eosinophils % 0.9; HCT 40.1 % (40.0-50.0); HGB 12.8 g/dL (13.5-17.5); Immature Grans % 1.1; Lymphocytes % 5.3; MCH 28.8 pg (27.0-33.0); MCHC 31.9 % (32.0-36.0); MCV 90.3 fL (80-95); MPV 8.6 fL (8.0-11.0); Monocytes % 8.5; Neutrophils % 83.5; Nucleated RBC 0 %; Platelet Count 107 10^3/uL (130-400); RBC 4.44 10^6/uL (4.36-5.78); RDW 14.4 % (11.8-14.1); WBC 4.36 10^3/uL (4.4-10.8)
[2021-08-13 07:41] LABS: ALT 24 U/L (16-63); AST 22 U/L (15-37); Albumin 3.4 g/dL (3.4-5.0); Alkaline Phosphatase 147 U/L (46-116); Anion Gap 4.5 mmol/L (3-11); BUN 19 mg/dL (7-18); Bilirubin, Total 0.3 mg/dL (0.2-1.0); CO2 32.5 mmol/L (21.0-32.0); CREATININE 0.7 mg/dL (0.70-1.30); Calcium 8.6 mg/dL (8.5-10.1); Chloride 105 mmol/L (98-107); Glucose 113 mg/dL (74-106); Magnesium 1.9 mg/dL (1.8-2.4); Potassium 4.2 mmol/L (3.5-5.1); Sodium 142 mmol/L (136-145); Total Protein 7.5 g/dL (6.4-8.2)
[2021-08-20] MEDS: Normal Saline Flush 10 ML SYR IVP (07:27)
[2021-08-20 07:36] LABS: Abs Immature Grans 0.02 10^3/uL (0.0-0.06); Absolute Basophil Count 0.02 10^3/uL (0.0-0.2); Absolute Eosinophil Count 0.04 10^3/uL (0.0-0.7); Absolute Monocyte Count 0.28 10^3/uL (0.1-0.8); Absolute Neutrophil Count 2.61 10^3/uL (1.2-6.7); Basophils % 0.6; Eosinophils % 1.3; HCT 37.8 % (40.0-50.0); HGB 12.1 g/dL (13.5-17.5); Immature Grans % 0.6; Lymphocytes % 6.3; MCH 28.9 pg (27.0-33.0); MCV 90.4 fL (80-95); MPV 8.7 fL (8.0-11.0); Monocytes % 8.8; Neutrophils % 82.4; Nucleated RBC 0 %; Platelet Count 118 10^3/uL (130-400); RBC 4.18 10^6/uL (4.36-5.78); RDW 14.7 % (11.8-14.1); RDW-SD 48.3 fL; WBC 3.17 10^3/uL (4.4-10.8)
[2021-08-20 08:09] LABS: ALT 20 U/L (16-63); AST 18 U/L (15-37); Albumin 3.3 g/dL (3.4-5.0); Alkaline Phosphatase 136 U/L (46-116); Anion Gap 4.5 mmol/L (3-11); BUN 23 mg/dL (7-18); Bilirubin, Total 0.2 mg/dL (0.2-1.0); CO2 32.5 mmol/L (21.0-32.0); CREATININE 0.8 mg/dL (0.70-1.30); Calcium 8.7 mg/dL (8.5-10.1); Chloride 105 mmol/L (98-107); Glucose 119 mg/dL (74-106); Magnesium 1.9 mg/dL (1.8-2.4); Sodium 142 mmol/L (136-145)
== END 2021-08-20 23:59 | disposition home or self-care (01) ==
LOC: INF 01:22
PROVIDERS: PCP Internal Medicine; Visit Provider Internal Medicine Medical Oncology
DX: C34.32 Malignant neoplasm of lower lobe, left bronchus or lung (principal); R31.9 Hematuria, unspecified; Z45.2 Encounter for adjustment and management of vascular access device
CPT/HCPCS: 36591; 80053; 87077; 81003; 81015; 83735; 85025; 87086; 87186

== ENCOUNTER 2021-09-03 00:54 | Outpatient (RCR) | payer MEDICARE, SELFPAY ==
[2021-09-03] MEDS: Normal Saline Flush 10 ML SYR IVP (07:30)
[2021-09-03 07:42] LABS: Abs Immature Grans 0.01 10^3/uL (0.0-0.06); Absolute Basophil Count 0.02 10^3/uL (0.0-0.2); Absolute Eosinophil Count 0.05 10^3/uL (0.0-0.7); Absolute Lymphocyte Count 0.18 10^3/uL (1.2-3.4); Absolute Monocyte Count 0.35 10^3/uL (0.1-0.8); Absolute Neutrophil Count 2.34 10^3/uL (1.2-6.7); Basophils % 0.7; Eosinophils % 1.7; HGB 12.3 g/dL (13.5-17.5); Immature Grans % 0.3; Lymphocytes % 6.1; MCH 29.8 pg (27.0-33.0); MCHC 32.4 % (32.0-36.0); MPV 8.7 fL (8.0-11.0); Monocytes % 11.9; Neutrophils % 79.3; Nucleated RBC 0 %; Platelet Count 112 10^3/uL (130-400); RBC 4.13 10^6/uL (4.36-5.78); RDW 15.9 % (11.8-14.1); WBC 2.95 10^3/uL (4.4-10.8)
[2021-09-03 08:00] LABS: ALT 27 U/L (16-63); AST 22 U/L (15-37); Albumin 3.4 g/dL (3.4-5.0); Alkaline Phosphatase 149 U/L (46-116); Anion Gap 6.1 mmol/L (3-11); BUN 19 mg/dL (7-18); Bilirubin, Total 0.3 mg/dL (0.2-1.0); CO2 30.9 mmol/L (21.0-32.0); CREATININE 0.9 mg/dL (0.70-1.30); Calcium 8.7 mg/dL (8.5-10.1); Chloride 109 mmol/L (98-107); Glucose 151 mg/dL (74-106); Potassium 3.7 mmol/L (3.5-5.1); Sodium 146 mmol/L (136-145); Total Protein 7.1 g/dL (6.4-8.2)
[2021-09-03 09:56] LABS: TSH 2.96 uIU/mL (0.36-3.74)
== END 2021-09-20 23:59 | disposition home or self-care (01) ==
LOC: INF 00:54
PROVIDERS: PCP Internal Medicine; Visit Provider Internal Medicine Medical Oncology
DX: C34.32 Malignant neoplasm of lower lobe, left bronchus or lung (principal); Z79.899 Other long term (current) drug therapy; Z45.2 Encounter for adjustment and management of vascular access device
CPT/HCPCS: 36591; 80053; 83735; 84439; 84443; 85025

== ENCOUNTER 2021-10-01 01:57 | Outpatient (RCR) | payer MEDICARE, SELFPAY ==
[2021-10-01] MEDS: Normal Saline Flush 10 ML SYR IVP (08:16)
[2021-10-01 08:30] LABS: Abs Immature Grans 0.05 10^3/uL (0.0-0.06); Absolute Basophil Count 0.05 10^3/uL (0.0-0.2); Absolute Eosinophil Count 0.31 10^3/uL (0.0-0.7); Absolute Lymphocyte Count 0.31 10^3/uL (1.2-3.4); Absolute Monocyte Count 0.69 10^3/uL (0.1-0.8); Absolute Neutrophil Count 4.82 10^3/uL (1.2-6.7); Basophils % 0.8; HCT 38.6 % (40.0-50.0); HGB 12.2 g/dL (13.5-17.5); Immature Grans % 0.8; MCH 29.3 pg (27.0-33.0); MCHC 31.6 % (32.0-36.0); MCV 92.8 fL (80-95); MPV 8.4 fL (8.0-11.0); Monocytes % 11.1; Neutrophils % 77.3; Nucleated RBC 0 %; Platelet Count 159 10^3/uL (130-400); RBC 4.16 10^6/uL (4.36-5.78); RDW 14.9 % (11.8-14.1); RDW-SD 51.1 fL; WBC 6.23 10^3/uL (4.4-10.8)
[2021-10-01 09:11] LABS: ALT 35 U/L (16-63); AST 23 U/L (15-37); Albumin 3.1 g/dL (3.4-5.0); Alkaline Phosphatase 198 U/L (46-116); BUN 15 mg/dL (7-18); Bilirubin, Total 0.2 mg/dL (0.2-1.0); CREATININE 0.8 mg/dL (0.70-1.30); Calcium 8.9 mg/dL (8.5-10.1); Chloride 106 mmol/L (98-107); FREE T4 0.82 ng/dL (0.76-1.46); Glucose 132 mg/dL (74-106); Magnesium 1.9 mg/dL (1.8-2.4); Sodium 143 mmol/L (136-145); TSH 1.92 uIU/mL (0.36-3.74); Total Protein 7.2 g/dL (6.4-8.2)
== END 2021-10-20 23:59 | disposition home or self-care (01) ==
LOC: INF 01:57
PROVIDERS: PCP Internal Medicine; Visit Provider Internal Medicine Medical Oncology
DX: C34.32 Malignant neoplasm of lower lobe, left bronchus or lung (principal); Z79.899 Other long term (current) drug therapy; Z45.2 Encounter for adjustment and management of vascular access device
CPT/HCPCS: 36591; 80053; 83735; 84439; 84443; 85025

== ENCOUNTER 2021-10-29 01:00 | Outpatient (RCR) | payer MEDICARE, SELFPAY ==
[2021-10-29] MEDS: Normal Saline Flush 10 ML SYR IVP (08:58)
[2021-10-29 09:10] LABS: Abs Immature Grans 0.02 10^3/uL (0.0-0.06); Absolute Basophil Count 0.02 10^3/uL (0.0-0.2); Absolute Lymphocyte Count 0.29 10^3/uL (1.2-3.4); Absolute Monocyte Count 0.59 10^3/uL (0.1-0.8); Absolute Neutrophil Count 4.38 10^3/uL (1.2-6.7); Basophils % 0.4; HCT 37.9 % (40.0-50.0); HGB 12.3 g/dL (13.5-17.5); Immature Grans % 0.4; Lymphocytes % 5.5; MCHC 32.5 % (32.0-36.0); MCV 92 fL (80-95); MPV 8.3 fL (8.0-11.0); Monocytes % 11.1; Neutrophils % 82.6; Platelet Count 108 10^3/uL (130-400); RDW 13.7 % (11.8-14.1); RDW-SD 47.2 fL
[2021-10-29 09:31] LABS: ALT 30 U/L (16-63); AST 27 U/L (15-37); Albumin 3.1 g/dL (3.4-5.0); Alkaline Phosphatase 169 U/L (46-116); Anion Gap 3.2 mmol/L (3-11); BUN 17 mg/dL (7-18); Bilirubin, Total 0.3 mg/dL (0.2-1.0); CO2 32.8 mmol/L (21.0-32.0); CREATININE 0.8 mg/dL (0.70-1.30); Calcium 8.5 mg/dL (8.5-10.1); Chloride 105 mmol/L (98-107); FREE T4 0.73 ng/dL (0.76-1.46); Glucose 99 mg/dL (74-106); Magnesium 2.3 mg/dL (1.8-2.4); Potassium 3.9 mmol/L (3.5-5.1); Sodium 141 mmol/L (136-145); TSH 1.65 uIU/mL (0.36-3.74); Total Protein 6.9 g/dL (6.4-8.2)
== END 2021-11-20 23:59 | disposition home or self-care (01) ==
LOC: INF 01:00
PROVIDERS: PCP Internal Medicine; Visit Provider Internal Medicine Medical Oncology
DX: C34.32 Malignant neoplasm of lower lobe, left bronchus or lung (principal); Z79.899 Other long term (current) drug therapy; Z45.2 Encounter for adjustment and management of vascular access device
CPT/HCPCS: 36591; 80053; 83735; 84439; 84443; 85025

== ENCOUNTER 2021-11-26 03:01 | Outpatient (RCR) | payer MEDICARE, SELFPAY ==
[2021-11-26] MEDS: Normal Saline Flush 10 ML SYR IVP (12:21)
[2021-11-26 12:35] LABS: Abs Immature Grans 0.02 10^3/uL (0.0-0.06); Absolute Basophil Count 0.04 10^3/uL (0.0-0.2); Absolute Lymphocyte Count 0.41 10^3/uL (1.2-3.4); Absolute Monocyte Count 0.57 10^3/uL (0.1-0.8); Basophils % 0.6; HCT 39.6 % (40.0-50.0); HGB 12.6 g/dL (13.5-17.5); Immature Grans % 0.3; MCH 29.6 pg (27.0-33.0); MCHC 31.8 % (32.0-36.0); MCV 93 fL (80-95); MPV 8.5 fL (8.0-11.0); Monocytes % 8.3; Neutrophils % 84.8; Platelet Count 124 10^3/uL (130-400); RBC 4.25 10^6/uL (4.36-5.78); RDW 12.6 % (11.8-14.1); RDW-SD 43.1 fL; WBC 6.84 10^3/uL (4.4-10.8)
[2021-11-26 13:40] LABS: ALT 30 U/L (16-63); AST 21 U/L (15-37); Albumin 3.3 g/dL (3.4-5.0); Alkaline Phosphatase 163 U/L (46-116); Anion Gap 7.7 mmol/L (3-11); BUN 18 mg/dL (7-18); Bilirubin, Total 0.2 mg/dL (0.2-1.0); CO2 31.3 mmol/L (21.0-32.0); CREATININE 0.7 mg/dL (0.70-1.30); Calcium 8.6 mg/dL (8.5-10.1); Chloride 108 mmol/L (98-107); FREE T4 0.72 ng/dL (0.76-1.46); Glucose 98 mg/dL (74-106); Magnesium 1.9 mg/dL (1.8-2.4); Potassium 4.1 mmol/L (3.5-5.1); Sodium 147 mmol/L (136-145); TSH 1.07 uIU/mL (0.36-3.74); Total Protein 6.7 g/dL (6.4-8.2)
== END 2021-12-20 23:59 | disposition home or self-care (01) ==
LOC: INF 03:01
PROVIDERS: PCP Internal Medicine; Visit Provider Internal Medicine Medical Oncology
DX: C34.32 Malignant neoplasm of lower lobe, left bronchus or lung (principal); Z79.899 Other long term (current) drug therapy; Z45.2 Encounter for adjustment and management of vascular access device
CPT/HCPCS: 36591; 80053; 83735; 84439; 84443; 85025

== ENCOUNTER 2021-12-31 02:45 | Outpatient (RCR) | payer MEDICARE, SELFPAY ==
[2021-12-31] MEDS: Normal Saline Flush 10 ML SYR IVP (10:20)
[2021-12-31 10:35] LABS: Abs Immature Grans 0.04 10^3/uL (0.0-0.06); Absolute Basophil Count 0.06 10^3/uL (0.0-0.2); Absolute Lymphocyte Count 0.39 10^3/uL (1.2-3.4); Absolute Neutrophil Count 5.15 10^3/uL (1.2-6.7); HCT 40.5 % (40.0-50.0); Immature Grans % 0.6; Lymphocytes % 6.3; MCHC 32.1 % (32.0-36.0); MCV 90 fL (80-95); MPV 8.4 fL (8.0-11.0); Monocytes % 9.6; Neutrophils % 82.5; Platelet Count 135 10^3/uL (130-400); RBC 4.48 10^6/uL (4.36-5.78); RDW 13.1 % (11.8-14.1); RDW-SD 43.2 fL; WBC 6.24 10^3/uL (4.4-10.8)
[2021-12-31 11:08] LABS: ALT 34 U/L (16-63); AST 34 U/L (15-37); Albumin 3.2 g/dL (3.4-5.0); Alkaline Phosphatase 163 U/L (46-116); Anion Gap 6.5 mmol/L (3-11); BUN 17 mg/dL (7-18); Bilirubin, Total 0.2 mg/dL (0.2-1.0); CO2 31.5 mmol/L (21.0-32.0); CREATININE 0.7 mg/dL (0.70-1.30); Calcium 8.8 mg/dL (8.5-10.1); Chloride 106 mmol/L (98-107); FREE T4 0.79 ng/dL (0.76-1.46); Glucose 106 mg/dL (74-106); Magnesium 1.9 mg/dL (1.8-2.4); Sodium 144 mmol/L (136-145); TSH 1.35 uIU/mL (0.36-3.74); Total Protein 6.9 g/dL (6.4-8.2)
== END 2022-01-20 23:59 | disposition home or self-care (01) ==
LOC: INF 02:45
PROVIDERS: PCP Internal Medicine; Visit Provider Internal Medicine Medical Oncology
DX: C34.32 Malignant neoplasm of lower lobe, left bronchus or lung (principal); Z79.899 Other long term (current) drug therapy; Z45.2 Encounter for adjustment and management of vascular access device
CPT/HCPCS: 36591; 80053; 83735; 84439; 84443; 85025

== ENCOUNTER 2022-02-04 02:14 | Outpatient (RCR) | payer MEDICARE, SELFPAY ==
[2022-02-04] MEDS: Normal Saline Flush 10 ML SYR IVP (08:50)
[2022-02-04 09:35] LABS: Abs Immature Grans 0.06 10^3/uL (0.0-0.06); Absolute Basophil Count 0.04 10^3/uL (0.0-0.2); Absolute Eosinophil Count 0.01 10^3/uL (0.0-0.7); Absolute Lymphocyte Count 0.42 10^3/uL (1.2-3.4); Absolute Monocyte Count 0.59 10^3/uL (0.1-0.8); Absolute Neutrophil Count 7.07 10^3/uL (1.2-6.7); Basophils % 0.5; Eosinophils % 0.1; HCT 40.1 % (40.0-50.0); HGB 12.9 g/dL (13.5-17.5); Immature Grans % 0.7; Lymphocytes % 5.1; MCH 29.2 pg (27.0-33.0); MCHC 32.2 % (32.0-36.0); MCV 91 fL (80-95); MPV 8.6 fL (8.0-11.0); Monocytes % 7.2; Neutrophils % 86.4; Platelet Count 146 10^3/uL (130-400); RBC 4.42 10^6/uL (4.36-5.78); RDW 13.7 % (11.8-14.1); RDW-SD 46.3 fL; WBC 8.19 10^3/uL (4.4-10.8)
[2022-02-04 09:47] LABS: ALT 38 U/L (16-63); AST 18 U/L (15-37); Albumin 3.2 g/dL (3.4-5.0); Alkaline Phosphatase 121 U/L (46-116); BUN 26 mg/dL (7-18); Bilirubin, Total 0.3 mg/dL (0.2-1.0); CREATININE 0.8 mg/dL (0.70-1.30); Calcium 8.6 mg/dL (8.5-10.1); Chloride 105 mmol/L (98-107); FREE T4 0.78 ng/dL (0.76-1.46); Glucose 115 mg/dL (74-106); Magnesium 1.8 mg/dL (1.8-2.4); Potassium 3.5 mmol/L (3.5-5.1); Sodium 144 mmol/L (136-145); TSH 2.66 uIU/mL (0.36-3.74); Total Protein 6.8 g/dL (6.4-8.2)
== END 2022-02-20 23:59 | disposition home or self-care (01) ==
LOC: INF 02:14
PROVIDERS: PCP Internal Medicine; Visit Provider Internal Medicine Medical Oncology
DX: Z79.899 Other long term (current) drug therapy (principal); C34.32 Malignant neoplasm of lower lobe, left bronchus or lung; Z45.2 Encounter for adjustment and management of vascular access device
CPT/HCPCS: 36591; 80053; 83735; 84439; 84443; 85025

== ENCOUNTER 2022-03-04 02:52 | Outpatient (RCR) | payer MEDICARE, SELFPAY ==
[2022-03-04] MEDS: Normal Saline Flush 10 ML SYR IVP (08:19)
[2022-03-04 09:01] LABS: Abs Immature Grans 0.02 10^3/uL (0.0-0.06); Absolute Basophil Count 0.04 10^3/uL (0.0-0.2); Absolute Lymphocyte Count 0.35 10^3/uL (1.2-3.4); Absolute Monocyte Count 0.42 10^3/uL (0.1-0.8); Absolute Neutrophil Count 4.12 10^3/uL (1.2-6.7); Basophils % 0.8; HCT 38.9 % (40.0-50.0); HGB 12.5 g/dL (13.5-17.5); Immature Grans % 0.4; Lymphocytes % 6.9; MCH 29.5 pg (27.0-33.0); MCHC 32.1 % (32.0-36.0); MCV 92 fL (80-95); MPV 8.6 fL (8.0-11.0); Monocytes % 8.3; Neutrophils % 81.6; Platelet Count 133 10^3/uL (130-400); RBC 4.24 10^6/uL (4.36-5.78); RDW 13.6 % (11.8-14.1); RDW-SD 46.2 fL; WBC 5.05 10^3/uL (4.4-10.8)
[2022-03-04 09:35] LABS: ALT 26 U/L (16-63); AST 20 U/L (15-37); Albumin 3.1 g/dL (3.4-5.0); Alkaline Phosphatase 162 U/L (46-116); BUN 20 mg/dL (7-18); Bilirubin, Total 0.2 mg/dL (0.2-1.0); CREATININE 0.9 mg/dL (0.70-1.30); Calcium 8.8 mg/dL (8.5-10.1); Chloride 106 mmol/L (98-107); Estimated GFR 84.22 (mL/min/1.73m2); FREE T4 0.78 ng/dL (0.76-1.46); Glucose 140 mg/dL (74-106); Magnesium 1.7 mg/dL (1.8-2.4); Potassium 3.8 mmol/L (3.5-5.1); Sodium 145 mmol/L (136-145); TSH 3.07 uIU/mL (0.36-3.74); Total Protein 6.9 g/dL (6.4-8.2)
== END 2022-03-22 23:59 | disposition home or self-care (01) ==
LOC: INF 02:52
PROVIDERS: PCP Internal Medicine; Visit Provider Internal Medicine Medical Oncology
DX: C34.32 Malignant neoplasm of lower lobe, left bronchus or lung (principal); Z79.899 Other long term (current) drug therapy; Z45.2 Encounter for adjustment and management of vascular access device
CPT/HCPCS: 36591; 80053; 83735; 84439; 84443; 85025

== ENCOUNTER 2022-04-01 02:14 | Outpatient (RCR) | payer MEDICARE, SELFPAY ==
[2022-04-01] MEDS: Normal Saline Flush 10 ML SYR IVP (08:57)
[2022-04-01 09:06] LABS: Abs Immature Grans 0.06 10^3/uL (0.0-0.06); Absolute Basophil Count 0.02 10^3/uL (0.0-0.2); Absolute Eosinophil Count 0.02 10^3/uL (0.0-0.7); Absolute Lymphocyte Count 0.28 10^3/uL (1.2-3.4); Absolute Monocyte Count 0.28 10^3/uL (0.1-0.8); Absolute Neutrophil Count 6.54 10^3/uL (1.2-6.7); Basophils % 0.3; Eosinophils % 0.3; HCT 39.7 % (40.0-50.0); HGB 12.8 g/dL (13.5-17.5); Immature Grans % 0.8; Lymphocytes % 3.9; MCH 29.4 pg (27.0-33.0); MCHC 32.2 % (32.0-36.0); MCV 91 fL (80-95); MPV 8.5 fL (8.0-11.0); Monocytes % 3.9; Neutrophils % 90.8; Platelet Count 171 10^3/uL (130-400); RBC 4.35 10^6/uL (4.36-5.78); RDW 13.1 % (11.8-14.1); RDW-SD 43.6 fL
[2022-04-01 09:34] LABS: ALT 50 U/L (16-63); AST 24 U/L (15-37); Albumin 3.1 g/dL (3.4-5.0); Alkaline Phosphatase 115 U/L (46-116); Anion Gap 4.2 mmol/L (3-11); BUN 29 mg/dL (7-18); Bilirubin, Total 0.2 mg/dL (0.2-1.0); CO2 35.8 mmol/L (21.0-32.0); CREATININE 0.9 mg/dL (0.70-1.30); Calcium 9.1 mg/dL (8.5-10.1); Chloride 104 mmol/L (98-107); Estimated GFR 84.22 (mL/min/1.73m2); Glucose 141 mg/dL (74-106); Magnesium 1.8 mg/dL (1.8-2.4); Potassium 4.3 mmol/L (3.5-5.1); Sodium 144 mmol/L (136-145); T4 5.6 ug/mL (4.7-13.3); TSH 2.89 uIU/mL (0.36-3.74); Total Protein 6.9 g/dL (6.4-8.2)
== END 2022-04-22 23:59 | disposition home or self-care (01) ==
LOC: INF 02:14
PROVIDERS: PCP Internal Medicine; Visit Provider Internal Medicine Medical Oncology
DX: C34.32 Malignant neoplasm of lower lobe, left bronchus or lung (principal); Z79.899 Other long term (current) drug therapy; Z45.2 Encounter for adjustment and management of vascular access device
CPT/HCPCS: 36591; 80053; 83735; 84436; 84443; 85025

== ENCOUNTER 2022-05-13 14:25 | Outpatient (RCR) | payer MEDICARE, SELFPAY ==
[2022-05-13] MEDS: Normal Saline Flush 10 ML SYR IVP (14:35)
[2022-05-13 15:10] LABS: Abs Immature Grans 0.06 10^3/uL (0.0-0.06); Absolute Basophil Count 0.03 10^3/uL (0.0-0.2); Absolute Eosinophil Count 0.02 10^3/uL (0.0-0.7); Absolute Lymphocyte Count 0.26 10^3/uL (1.2-3.4); Absolute Monocyte Count 0.41 10^3/uL (0.1-0.8); Absolute Neutrophil Count 5.98 10^3/uL (1.2-6.7); Basophils % 0.4; Eosinophils % 0.3; HCT 40.6 % (40.0-50.0); HGB 13.2 g/dL (13.5-17.5); Immature Grans % 0.9; Lymphocytes % 3.8; MCH 29.3 pg (27.0-33.0); MCHC 32.5 % (32.0-36.0); MCV 90 fL (80-95); MPV 8.6 fL (8.0-11.0); Monocytes % 6.1; Neutrophils % 88.5; Platelet Count 161 10^3/uL (130-400); RDW 13.6 % (11.8-14.1); RDW-SD 45.1 fL; WBC 6.76 10^3/uL (4.4-10.8)
[2022-05-13 15:28] LABS: ALT 34 U/L (16-63); AST 28 U/L (15-37); Albumin 3.4 g/dL (3.4-5.0); Alkaline Phosphatase 119 U/L (46-116); Anion Gap 4.5 mmol/L (3-11); BUN 19 mg/dL (7-18); Bilirubin, Total 0.2 mg/dL (0.2-1.0); CO2 34.5 mmol/L (21.0-32.0); CREATININE 0.8 mg/dL (0.70-1.30); Calcium 8.9 mg/dL (8.5-10.1); Chloride 104 mmol/L (98-107); Estimated GFR 87.27 (mL/min/1.73m2); FREE T4 0.78 ng/dL (0.76-1.46); Glucose 108 mg/dL (74-106); Magnesium 1.9 mg/dL (1.8-2.4); Potassium 4.2 mmol/L (3.5-5.1); Sodium 143 mmol/L (136-145); TSH 1.88 uIU/mL (0.36-3.74); Total Protein 7.1 g/dL (6.4-8.2)
== END 2022-05-22 23:59 | disposition home or self-care (01) ==
LOC: INF 14:25
PROVIDERS: PCP Internal Medicine; Visit Provider Internal Medicine Medical Oncology
DX: Z79.899 Other long term (current) drug therapy (principal); C34.32 Malignant neoplasm of lower lobe, left bronchus or lung; Z45.2 Encounter for adjustment and management of vascular access device
CPT/HCPCS: 36591; 80053; 83735; 84439; 84443; 85025

== ENCOUNTER 2022-05-13 18:10 | Emergency (ER) | payer MEDICARE, SELFPAY ==
[2022-05-13 18:15] VITALS: BP 181/79; PULSE 95; RESP 20; TEMP 36.9; O2SAT 95
--- NOTE | 2022-05-13 18:26 | ED.GENADUL_ITS ---
Discharge Plan Disposition Patient Disposition: Home Condition: Improving Discharge Details Clinical Impression: Port-A-Cath in place Primary Care Provider: Fabienne Sexton ED Provider: Rodrigo Samuel Home Meds and New Rx's Prescriptions: Continued ipratropium-albuterol 0.5 mg-3 mg(2.5 mg base)/3 mL Solution For Nebulization 3 ml INHALATION QID PRN phenytoin sodium extended 100 mg Capsule 300 mg PO HS triamcinolone acetonide 0.1 % Cream 1 applic TOPICAL TID PRN simvastatin 40 mg Tablet 40 mg PO QPM clotrimazole-betamethasone [Lotrisone] 1-0.05 % Cream 1 applic TOPICAL BID omeprazole 20 mg Capsule,Delayed Release(Dr/Ec) 20 mg PO DAILY aspirin 81 mg Tablet,Chewable 81 mg PO .QOD Proventil HFA 90 mcg/actuation Hfa Aerosol Inhaler 2 puff INHALATION QID PRN phenytoin sodium extended 30 mg Capsule 30 mg PO HS finasteride 5 mg Tablet 5 mg PO DAILY Asmanex Twisthaler 220 mcg (120 doses) Aerosol Powdr Breath Activated 1 inh INHALATION BID cholecalciferol (vitamin D3) [Vitamin D3] 2,000 unit Capsule 2,000 unit PO DAILY roflumilast 500 mcg Tablet 500 mcg PO DAILY Centrum Silver Men 300-600-300 mcg Tablet 1 tab PO DAILY Stiolto Respimat 2.5-2.5 mcg/actuation Mist 2 puff INHALATION DAILY Discharge Instructions Additional Instructions: Your catheter has been un-accessed. Please watch for new or worsening symptoms and return to the ER for any concerns. Lastly, please contact your oncology team tomorrow to discuss your ER visit need for outpatient reevaluation. Medical Decision Making 86-year-old gentleman request that his port to be be accessed, they forgot to remove this at the cancer center today when he was scheduled for his infusion. Otherwise asymptomatic. The lock was removed appropriately without complication. Patient tolerated well. Standard discharge and return precautions were provided. Patient understands, is agreeable to this plan, and has no additional questions or concerns upon discharge. This documentation was generated using [employer] system, please disregard any oddities of phrase or misspellings. Medical Records Medical records reviewed: Yes I reviewed the patient's medical records. Sign Out No HPI General Mode of arrival: ambulatory . Date/Time Provider Initiated Documentation: 05/13/22 18:26 . Limitations to Documentation: no limitations . Information obtained by: patient . HPI Narrative: This is an 86-year-old gentleman, past medical history of lung cancer, who re ports that he went to the infusion clinic today for his scheduled infusion, had his port accessed, but ultimately his oncologist opted not to pursue the infusion, they forgot to remove the access from the port. He presents now requesting it be removed. He has no additional questions or concerns at this time. He is asymptomatic. Related Data Home Medications Medication Instructions Recorded Confirmed albuterol sulfate 90 mcg/actuation 2 puff inhalation QID PRN 06/03/18 06/19/18 aerosol inhaler (Proventil HFA) aspirin 81 mg chewable tablet 81 mg PO .QOD 06/03/18 06/19/18 cholecalciferol (vitamin D3) 50 2,000 unit PO DAILY 06/03/18 06/19/18 mcg (2,000 unit) capsule (Vitamin D3) clotrimazole-betamethasone 1 1 applic topical BID 06/03/18 06/19/18 %-0.05 % topical cream (Lotrisone) finasteride 5 mg tablet 5 mg PO DAILY 06/03/18 06/19/18 ipratropium 0.5 mg-albuterol 3 mg 3 ml inhalation QID PRN 06/03/18 06/19/18 (2.5 mg base)/3 mL nebulization soln mometasone 220 mcg/actuation(120 1 inh inhalation BID 06/03/18 06/19/18 doses)breath activated powder inhaler (Asmanex Twisthaler) spytdlmb-msz-cjysr acid 300 1 tab PO DAILY 06/03/18 06/19/18 mcg-lycopene 600 mcg-lutein 300 mcg tablet (Centrum Silver Men) omeprazole 20 mg capsule,delayed 20 mg PO DAILY 06/03/18 06/19/18 release phenytoin sodium extended 100 mg 300 mg PO HS 06/03/18 06/19/18 capsule phenytoin sodium extended 30 mg 30 mg PO HS 06/03/18 06/19/18 capsule roflumilast 500 mcg tablet 500 mcg PO DAILY 06/03/18 06/19/18 simvastatin 40 mg tablet 40 mg PO QPM 06/03/18 06/19/18 tiotropium 2.5 mcg-olodaterol 2.5 2 puff inhalation DAILY 06/03/18 06/19/18 mcg/actuation mist for inhalation (Stiolto Respimat) triamcinolone acetonide 0.1 % 1 applic topical TID PRN 06/03/18 06/19/18 topical cream Allergies Allergy/AdvReac Type Severity Reaction Status Date / Time pneumococcal vaccine Allergy Verified 06/19/18 10:21 [From Pneumovax 23] General Stated Complaint: GenMedical BETY: 4 Review of Systems Constitutional Constitutional: Denies fever(s) Cardiovascular Cardiovascular: Denies chest pain Integumentary/Breasts Skin/Breast: Denies rash PFSH All Active Problems Port-A-Cath in place (Acute) 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) Status post cataract extraction and insertion of intraocular lens of right eye (Chronic 06/08/18) Medical History Cortical cataract of left eye Cortical cataract of right eye Nuclear sclerotic cataract of left eye Nuclear sclerotic cataract of right eye Posterior subcapsular age-related cataract of left eye Posterior subcapsular age-related cataract, right eye Social History Smoking/Tobacco Use Status: Former Tobacco Use Smoking risk assessment performed?: Yes Drug use: Never Exam Const General: cooperative, healthy appearing, comfortable and no acute distress Orientation: alert and awake [facility] Head: normal to inspection, normocephalic and atraumatic Mouth: moist mucous membranes Eyes Conjunctivae: conjunctivae normal Neck Neck: normal visual inspection, full ROM, no meningeal signs, trachea midline and supple Chest Chest: normal palpation of entire chest wall Other: Access port in the right upper portion of the chest. No fever or discharge. Resp Effort & Inspection: normal respiratory effort and able to speak in complete sentences Skin General skin exam: no rashes or lesions noted Neuro General: patient alert, patient awake, moves all extremities and no focal motor deficits Sensory Exam: no sensory deficits noted Psych Appearance: grossly normal Mental Status: mental status grossly normal Course Vital Signs Vital signs: Vital Signs Temperature 36.9 C 05/13/22 18:15 Pulse 95 H 05/13/22 18:15 Respiratory Rate 20 05/13/22 18:15 Blood Pressure 181/79 H 05/13/22 18:15 Pulse Oximetry 95 05/13/22 18:15 Temperature 36.9 C 05/13/22 18:15 Temperature Source Tympanic 05/13/22 18:15 Pulse 95 H 05/13/22 18:15 Respiratory Rate 20 05/13/22 18:15 Blood Pressure 181/79 H 05/13/22 18:15 Blood Pressure Position Sitting 05/13/22 18:15 Pulse Oximetry 95 05/13/22 18:15 Oxygen Delivery Method Room Air 05/13/22 18:15 Oxygen Flow Rate 0 05/13/22 18:15 Pain Level 0 05/13/22 18:15
[2022-05-13] MEDS: Heparin 500 UNITS/5 ML SYRINGE (18:43)
--- NOTE | 2022-05-13 18:44 | NUR.NOTE ---
Port accessed by [facility] today. Patient left before port de accessed. D'C port with a heparin flush before removing. D'C without any problems
[2022-05-13 18:45] VITALS: RESP 18
== END 2022-05-13 19:01 | disposition home or self-care (01) ==
PROVIDERS: Emergency Provider Physician Assistant; PCP Internal Medicine
DX: Z45.2 Encounter for adjustment and management of vascular access device (principal)
CPT/HCPCS: 36591; 80053; 99281; 83735; 84439; 84443; 85025

== ENCOUNTER 2023-01-29 11:38 | Outpatient (RCR) | payer MEDICARE, SELFPAY ==
[2023-01-29] MEDS: Normal Saline Flush 10 ML SYR IVP (10:50)
[2023-01-29 11:49] LABS: Abs Immature Grans 0.03 10^3/uL (0.0-0.06); Absolute Basophil Count 0.03 10^3/uL (0.0-0.2); Absolute Eosinophil Count 0.27 10^3/uL (0.0-0.7); Absolute Lymphocyte Count 0.38 10^3/uL (1.2-3.4); Absolute Monocyte Count 0.43 10^3/uL (0.1-0.8); Absolute Neutrophil Count 5.21 10^3/uL (1.2-6.7); Basophils % 0.5; Eosinophils % 4.3; HCT 38.5 % (40.0-50.0); HGB 12.3 g/dL (13.5-17.5); Immature Grans % 0.5; MCH 28.2 pg (27.0-33.0); MCHC 31.9 % (32.0-36.0); MCV 88 fL (80-95); MPV 8.7 fL (8.0-11.0); Monocytes % 6.8; Neutrophils % 81.9; Platelet Count 150 10^3/uL (130-400); RBC 4.36 10^6/uL (4.36-5.78); RDW 13.7 % (11.8-14.1); RDW-SD 44.6 fL; WBC 6.35 10^3/uL (4.4-10.8)
[2023-01-29 12:13] LABS: ALT 20 U/L (16-63); AST 16 U/L (15-37); Albumin 2.9 g/dL (3.4-5.0); Alkaline Phosphatase 165 U/L (46-116); Anion Gap 2.8 mmol/L (3-11); BUN 23 mg/dL (7-18); Bilirubin, Total 0.2 mg/dL (0.2-1.0); CO2 33.2 mmol/L (21.0-32.0); CREATININE 0.8 mg/dL (0.70-1.30); Calcium 8.7 mg/dL (8.5-10.1); Chloride 109 mmol/L (98-107); Estimated GFR 86.73 (mL/min/1.73m2); Glucose 180 mg/dL (74-106); Sodium 145 mmol/L (136-145); TSH 2.47 uIU/mL (0.36-3.74); Total Protein 6.9 g/dL (6.4-8.2)
[2023-01-29] MEDS: Heparin 500 UNITS/5 ML SYRINGE IV (14:40)
== END 2023-02-20 23:59 | disposition home or self-care (01) ==
LOC: INF 11:38
PROVIDERS: PCP Internal Medicine; Visit Provider Internal Medicine Medical Oncology
DX: C34.32 Malignant neoplasm of lower lobe, left bronchus or lung (principal); Z79.899 Other long term (current) drug therapy; Z45.2 Encounter for adjustment and management of vascular access device
CPT/HCPCS: 36591; 80053; 84439; 84443; 85025